=== PATIENT | male | born 1965 | race American Indian/Alaskan Native ===

== ENCOUNTER 2016-09-01 21:34 | Emergency (ER) | payer BC, OTHER ==
[2016-09-01] MEDS ORDERED: Sodium Chloride 0.9% 1,000 ML IV ONE (21:57)
[2016-09-01] MEDS ORDERED: Ondansetron 4 MG/2 ML SDV IV ONE (21:57)
[2016-09-01] MEDS ORDERED: diphenhydrAMINE 50 MG/ML SDV IVPUSH ONE (22:08)
[2016-09-01] MEDS ORDERED: Ketorolac 30 MG/ML SDV IVPUSH ONE (22:08)
[2016-09-01 22:13] LABS: CHLORIDE,CL 102 mmol/L (101-111); SODIUM,NA 137 mmol/L (135-145)
--- NOTE | 2016-09-01 22:28 | EDM.PDOC ---
ED HPI HEADACHE COMPLAINT - General Chief Complaint: Headache Stated Complaint: BP HIGH Time Seen by Provider: 09/01/16 21:45 Source of Information: Reports: Patient History Limitations: Reports: No limitations - History of Present Illness INITIAL COMMENTS - FREE TEXT/NARRATIVE: Ed with c/o of severe headache at top of head ad to temporal area, "feels like someone screwing something into head". Hx of migraines last 2 years ago, never as bad as this one, H/A started while at work. Light sensitive and nasueated, no vomiting. Checked BP and elevated 190's at home, notes last clinic visits starting to increase. Timing/Duration: Reports: hour(s): Location: Reports: parietal, bilateral - Related Data Allergies/ADRs: Allergies Allergy/AdvReac Type Severity Reaction Status Date / Time acetaminophen [From Percocet] Allergy Severe Vomiting Verified 09/01/16 21:40 oxycodone [From Percocet] Allergy Severe Vomiting Verified 09/01/16 21:40 Home Meds: Home Meds Lisinopril 40 mg PO DAILY 09/01/16 [History] Metoprolol Succinate 25 mg PO DAILY 09/01/16 [History] amLODIPine [Norvasc] 10 mg PO BEDTIME 09/01/16 [History] Past Medical History Cardiovascular History: Reports: High cholesterol, Hypertension Gastrointestinal History: Reports: GERD Genitourinary History: Reports: Renal calculus Musculoskeletal History: Reports: RA Neurological History: Reports: Migraines Endocrine/Metabolic History: Reports: Diabetes, type II, IDDM - Infectious Disease History Infectious Disease History: Reports: Chicken pox - Past Surgical History GI Surgical History: Reports: Appendectomy Social & Family History - Family History Cardiac: Reports: Angina, CAD, Heart failure, High cholesterol, Hypertension, [place] , Prior cardiac arrest - Tobacco Use Smoking Status *Q: Never Smoker Years of Tobacco use: 35 Used Tobacco, but Quit: Yes Month Tobacco Last Used: feb 2014 Second Hand Smoke Exposure: No - Caffeine Use Caffeine Use: Reports: None - Recreational Drug Use Recreational Drug Use: No - Living Situation & Occupation Occupation: employed ED ROS GENERAL - Review of Systems Review Of Systems: See Below Constitutional: Reports: no symptoms HEENT: Reports: No symptoms Respiratory: Reports: No Symptoms Cardiovascular: Reports: Blood pressure problem GI/Abdominal: Reports: Nausea : Reports: no symptoms Musculoskeletal: Reports: no symptoms Neurological: Reports: Headache. Denies: Numbness, Paresthesia, Pre-Existing Deficit, Tingling, Trouble Speaking, Difficulty Walking, Weakness Psychiatric: Reports: No symptoms - Physical Exam Exam: See Below Exam Limited By: No limitations General Appearance: alert, moderate distress Eye Exam: bilateral eye: EOMI, normal fundi, normal inspection, PERRL Ears: normal external exam Nose: normal inspection Throat/Mouth: Normal inspection Head Exam: atraumatic, normocephalic Neck: normal inspection Respiratory/Chest: no respiratory distress, lungs clear, normal breath sounds Cardiovascular: normal peripheral pulses, regular rate, rhythm, no edema GI/Abdominal: normal bowel sounds Neuro Exam (Abbreviated): alert, oriented, CN II-XII intact, normal cognition, normal gait, normal reflexes, no motor/sensory deficits Extremities: normal inspection Psychiatric: normal affect, anxious Skin Exam: Warm, Dry, Intact Course - Vital Signs Last Recorded V/S: Last Vital Signs Temp 96.5 F 09/01/16 21:36 Pulse 91 09/01/16 21:36 Resp 18 09/01/16 23:36 BP 151/85 H 09/01/16 23:36 Pulse Ox 93 L 09/01/16 23:36 - Orders/Labs/Meds Orders: Active Orders 24 hr Category Date Time Status EKG Documentation Completion [RC] URGENT Care 09/01/16 21:39 Active UA W/MICROSCOPIC [URIN] Stat Lab 09/01/16 21:41 Uncollected Labs: Laboratory Tests 09/01/16 09/01/16 09/01/16 Range/Units 21:46 21:46 21:46 WBC 8.5 (5.0-10.0) 10^3/uL RBC 4.84 (4.6-6.2) 10^6/uL Hgb 13.7 L (14.0-18.0) g/dL Hct 39.4 L (40.0-54.0) % MCV 81.4 (80-100) fL MCH 28.3 (27.0-34.0) pg MCHC 34.8 (33.0-35.0) g/dL Plt Count 267 (150-450) 10^3/uL Neut % (Auto) 69.7 (42.2-75.2) % Lymph % (Auto) 21.0 (20.5-50.1) % Bucks % (Auto) 6.0 (2-8) % Eos % (Auto) 2.8 (1.0-3.0) % Baso % (Auto) 0.5 (0.0-1.0) % PT 9.4 (9.0-12.0) SEC INR 0.9 (0.9-1.2) Sodium 137 (135-145) mmol/L Potassium 3.6 (3.6-5.0) mmol/L Chloride 102 (101-111) mmol/L Carbon Dioxide 28.0 (21.0-31.0) mmol/L Anion Gap 10.6 BUN 13 (7-18) mg/dL Creatinine 1.1 (0.6-1.3) mg/dL Est Cr Clr Drug Dosing 88.78 mL/min Estimated GFR (MDRD) > 60 BUN/Creatinine Ratio 11.81 Glucose 232 H (74-105) mg/dL Calcium 8.9 (8.4-10.2) mg/dl Total Bilirubin 0.6 (0.2-1.0) mg/dL AST 35 (10-42) IU/L ALT 35 (10-60) IU/L Alkaline Phosphatase 64 (42-121) IU/L Troponin I < 0.02 (0.00-0.02) ng/ml Total Protein 6.4 L (6.7-8.2) g/dl Albumin 3.5 (3.2-5.5) g/dl Globulin 2.9 Albumin/Globulin Ratio 1.21 Meds: Medications Discontinued Medications Generic Name Dose Route Start Last Admin Trade Name Enioq PRN Reason Stop Dose Admin Butorphanol Tartrate 1 mg 09/01/16 22:49 09/01/16 22:56 Stadol IVPUSH 09/01/16 22:50 1 mg ONETIME ONE Administration Diphenhydramine HCl 25 mg 09/01/16 22:08 09/01/16 22:21 Benadryl IVPUSH 09/01/16 22:09 25 mg ONETIME ONE Administration Sodium Chloride 1,000 mls @ 999 mls/hr 09/01/16 21:57 09/01/16 22:16 Normal Saline IV 09/01/16 22:57 999 mls/hr .BOLUS ONE Administration Ketorolac Tromethamine 30 mg 09/01/16 22:08 09/01/16 22:18 Toradol IVPUSH 09/01/16 22:09 30 mg ONETIME ONE Administration Ondansetron HCl 4 mg 09/01/16 21:57 09/01/16 22:16 Zofran IV 09/01/16 21:58 4 mg ONETIME ONE Administration - Radiology Interpretation Free Text/Narrative:: Head CT negative - Re-Assessments/Exams Free Text/Narrative Re-Assessment/Exam: 09/01/16 22:42 H/A improving, rates 11/24 vs earlier "04/26", BP improved 150 systolic Departure - Departure Time of Disposition: 23:32 Disposition: Home, Self-Care 01 Condition: good Clinical Impression: Headache Qualifiers: Headache type: unspecified Headache chronicity pattern: acute headache Intractability: not intractable Qualified Code(s): R51 - Headache Instructions: Migraine Headache Forms: ED Department Discharge Additional Instructions: rest increase fluids follow up in clinic 2-3 days, sooner if not improving - My Orders Last 24 Hours: My Active Orders 09/01/16 21:39 EKG Documentation Completion [RC] URGENT 09/01/16 21:41 UA W/MICROSCOPIC [URIN] Stat - Assessment/Plan Last 24 Hours: My Active Orders 09/01/16 21:39 EKG Documentation Completion [RC] URGENT 09/01/16 21:41 UA W/MICROSCOPIC [URIN] Stat
[2016-09-01] MEDS ORDERED: Butorphanol 2 MG/ML SDV IVPUSH ONE (22:49)
[2016-09-01 23:37] VITALS: BP 151/85
--- NOTE | 2016-09-02 16:04 | EKG ---
09/01/2016 - KELLY OSEGUERA E - TIME: 2147 hours. EKG per my reading shows sinus rhythm at the rate of 80 with QTc interval of 499. [facility] /[id number]
== END 2016-09-01 23:46 | disposition home or self-care (01) ==
LOC: DL.ED 21:34
DX: R51 Headache (principal); E78.00 Pure hypercholesterolemia, unspecified; I10 Essential (primary) hypertension; K21.9 Gastro-esophageal reflux disease without esophagitis; G43.909 Migraine, unspecified, not intractable, without status migrainosus; E11.9 Type 2 diabetes mellitus without complications; M06.9 Rheumatoid arthritis, unspecified; Z90.49 Acquired absence of other specified parts of digestive tract; Z88.6 Allergy status to analgesic agent; Z88.5 Allergy status to narcotic agent; Z79.899 Other long term (current) drug therapy
CPT/HCPCS: 36415; 70450; 80053; 84484; 85025; 85610; 93005; 96361; 96374; 96375; 99284; J0595; J1200; J1885; J2405; J7030

== ENCOUNTER 2016-09-20 12:06 | Emergency (ER) | payer BC, OTHER ==
[2016-09-20 12:21] VITALS: BP 156/77
[2016-09-20] MEDS ORDERED: Lidocaine 2% Viscous Solution 15 ML Cup PO ONE (12:26)
--- NOTE | 2016-09-20 12:54 | EDM.PDOC ---
Scribed by Keri Jorgensen 09/20/16 1236 for Arya Coker MD ED HPI ENT - General Chief Complaint: ENT Problem Stated Complaint: TOOTHACHE Time Seen by Provider: 09/20/16 12:18 Source of Information: Reports: Patient, RN, RN notes reviewed History Limitations: Reports: No limitations - History of Present Illness INITIAL COMMENTS - FREE TEXT/NARRATIVE: Seen at dentist yesterday. The dentist drilled to the root of the left rear mandibular molar and placed a temporary packing here for the patient for root canal. Placed the patient on Amoxicillin and told the patient that a prescription for pain medication would be waiting at the clinic pharmacy, however, the prescription was not there. By the time he got to the pharmacy the dentist was was gone and unable to be contacted. Patient thought that he could get by with Tylenol or Ibuprofen, but the pain was intolerable. Today he had increased swelling and increased warmth to the left face. Severity: severe Location: Reports: mouth Quality: Reports: Ache Improves with: Reports: None Worsens with: Reports: None Associated Symptoms: Reports: no other symptoms - Related Data Allergies/ADRs: Allergies Allergy/AdvReac Type Severity Reaction Status Date / Time acetaminophen [From Percocet] Allergy Severe Vomiting Verified 09/20/16 12:21 oxycodone [From Percocet] Allergy Severe Vomiting Verified 09/20/16 12:21 Home Meds: Home Meds Lisinopril 40 mg PO DAILY 09/01/16 [History] Metoprolol Succinate 25 mg PO DAILY 09/01/16 [History] amLODIPine [Norvasc] 10 mg PO BEDTIME 09/01/16 [History] Chlorthalidone 1 tab PO DAILY 09/20/16 [History] Insulin Aspart [Novolog Flexpen] 09/20/16 [History] Insulin Detemir [Levemir] 09/20/16 [History] Omeprazole 20 mg PO DAILY 09/20/16 [History] Past Medical History Cardiovascular History: Reports: High cholesterol, Hypertension Gastrointestinal History: Reports: GERD Genitourinary History: Reports: Renal calculus Musculoskeletal History: Reports: RA Neurological History: Reports: Migraines Endocrine/Metabolic History: Reports: Diabetes, type II, IDDM - Infectious Disease History Infectious Disease History: Reports: Chicken pox - Past Surgical History GI Surgical History: Reports: Appendectomy Social & Family History - Family History Cardiac: Reports: Angina, CAD, Heart failure, High cholesterol, Hypertension, [place] , Prior cardiac arrest - Tobacco Use Smoking Status *Q: Never Smoker Years of Tobacco use: 35 Used Tobacco, but Quit: Yes Month Tobacco Last Used: feb 2014 Second Hand Smoke Exposure: No - Caffeine Use Caffeine Use: Reports: None - Recreational Drug Use Recreational Drug Use: No - Living Situation & Occupation Occupation: employed ED ROS ENT - Review of Systems Review Of Systems: ROS reveals no pertinent complaints other than HPI. ED EXAM, ENT - Physical Exam Exam: See Below Exam Limited By: No limitations General Appearance: alert, WD/WN, no apparent distress Eye Exam: bilateral eye: normal inspection Ears: normal external exam, normal canal, hearing grossly normal, normal TMs Nose: normal inspection, normal mucousa, no blood Mouth/Throat: Other (temproary pack in left mandibular molar with gum swelling. Left face swelling, tenderness and increased warmath. ) Head: atraumatic, normocephalic Neck: normal inspection, supple, non-tender, full range of motion Respiratory/Chest: no respiratory distress Neurological: alert, oriented, CN II-XII intact, normal cognition, normal gait, normal reflexes, no motor/sensory deficits Psychiatric: normal affect, normal mood Skin: Warm, Dry, Intact, Normal color, No rash Lymphatic: no adenopathy Course - Vital Signs Last Recorded V/S: Last Vital Signs Temp 36.3 C 09/20/16 12:17 Pulse 71 09/20/16 12:17 Resp 18 09/20/16 12:17 BP 156/77 H 09/20/16 12:17 Pulse Ox 99 09/20/16 12:17 - Orders/Labs/Meds Meds: Medications Discontinued Medications Generic Name Dose Route Start Last Admin Trade Name Freq PRN Reason Stop Dose Admin Lidocaine HCl 15 ml 09/20/16 12:26 09/20/16 12:40 Xylocaine 2% Viscous PO 09/20/16 12:27 15 ml ONETIME ONE Administration Departure - Departure Time of Disposition: 12:28 Disposition: Home, Self-Care 01 Condition: good Clinical Impression: Dental abscess Instructions: Dental Abscess, [id number] Forms: ED Department Discharge Additional Instructions: Avon 5mg/325mg. Clindamycin 300mg. Vicus Lidocaine 2%. Follow up with dentist as planned. I have read and agree with the documentation that has been completed regarding this visit. By signing this record, I attest that the documentation was completed in my physical presence and is an accurate record of the encounter.
== END 2016-09-20 12:42 | disposition home or self-care (01) ==
LOC: DL.ED 12:06
DX: K04.7 Periapical abscess without sinus (principal); E78.00 Pure hypercholesterolemia, unspecified; I10 Essential (primary) hypertension; K21.9 Gastro-esophageal reflux disease without esophagitis; M06.9 Rheumatoid arthritis, unspecified; E11.9 Type 2 diabetes mellitus without complications; Z79.4 Long term (current) use of insulin; Z79.899 Other long term (current) drug therapy; Z90.49 Acquired absence of other specified parts of digestive tract; Z88.6 Allergy status to analgesic agent
CPT/HCPCS: 99282; A9270

== ENCOUNTER 2018-09-14 07:03 | Day surgery (SDC) | payer BC, OTHER ==
[~2018-09-14 07:03] MED LIST: Midazolam 1 MG/ML 2 ML SDV ONE; Sodium Chloride 0.9% 10 ML Syringe FLUSH PRN; fentaNYL 100 MCG/2 ML SDV ONE
[2018-09-14] MEDS ORDERED: Midazolam 1 MG/ML 2 ML SDV IV ONE ×3 (07:04→07:37)
[2018-09-14] MEDS ORDERED: fentaNYL 100 MCG/2 ML SDV IV ONE ×3 (07:04→07:36)
[2018-09-14] MEDS ORDERED: Dextrose 5%-0.45% NaCl 1,000 ML IV SCH (08:00)
[2018-09-14 09:52] VITALS: BP 109/74
--- NOTE | 2018-09-14 13:46 | OR ---
DATE: 09/14/2018 PROCEDURE PERFORMED: Esophagogastroduodenoscopy and multiple pinch biopsies. INSTRUMENT USED: [id number]-[id number] Olympus video panendoscope. PREMEDICATIONS: No oral or topical anesthesia used. Fentanyl 100 mcg intravenous, Versed 2 mg intravenous. The procedure was done under pulse oximetry, BP recording, and equipment monitor phototypesetting. INDICATION: The patient with longstanding heartburn, on PPI with continuing heartburn, unexplained and not responsive to medical measures. Esophagogastroduodenoscopy is performed for detection of any active erosive lesions, West esophagus and/or malignancy also under consideration, H. pylori status to be determined, endoscopic hemostasis therapy if needed. DESCRIPTION OF PROCEDURE: The scope was passed with ease. Adequate visualization of the esophagus was made from proximal to distal areas. No upper esophageal lesions identified. No distal esophageal stricture. No uphill or downhill esophageal varices. No Nemo-Larson tear. No evidence of erosive esophagitis by Kimble criteria. No esophageal polyp or tumor mass identified. Z-line was seen at around 40 cm distal to the oral verge, configuration consistent with grade 1 by ZAP classification. No proximal gastric varices noted. Gastric fundus examination by retroflexion showed no malignant lesions. No gastric ulcer, malignant mass, or vascular ectasia identified. Duodenal bulb showed no ulcer. Visualized second part of the duodenum was unremarkable. Multiple pinch biopsies were taken from the gastric antrum and proximal body and sent for PyloriTek test for H. pylori, and if negative in an hour, the tissue is to be sent for histopathology. No bleeding was noted from any of the visualized areas at the completion of examination. Photographs were taken of the duodenal bulb, gastric antrum, fundus, and distal esophagus. IMPRESSION: Normal study. The patient tolerated the procedure well. [facility] /[id number]
--- NOTE | 2018-09-14 15:07 | LETTER ---
09/14/2018 Keyon Stover MD [facility] [address] [place] [address] RE: MITCH OSEGUERA : [address] Stover: Mr. Mitch Aguirre Tiana Sr. had esophagogastroduodenoscopy done this morning and he tolerated the procedure well. I herewith send a copy of the endoscopy note and photographs for your review. Thank you. Sincerely, [facility] /[id number]
== END 2018-09-14 09:24 | disposition home or self-care (01) ==
LOC: DL.ENDO 07:03
PROVIDERS: ATTEND Internal Medicine Gastroenterology
DX: R12 Heartburn (principal); E78.00 Pure hypercholesterolemia, unspecified; I12.9 Hypertensive chronic kidney disease with stage 1 through stage 4 chronic kidney disease, or unspecified chronic kidney disease; E11.22 Type 2 diabetes mellitus with diabetic chronic kidney disease; N18.9 Chronic kidney disease, unspecified; Z88.8 Allergy status to other drugs, medicaments and biological substances; Z87.891 Personal history of nicotine dependence; Z80.0 Family history of malignant neoplasm of digestive organs; Z79.82 Long term (current) use of aspirin; Z79.899 Other long term (current) drug therapy
CPT/HCPCS: 43239; 87077; J2250; J3010; J7042

== ENCOUNTER 2018-09-21 05:59 | Day surgery (SDC) | payer BC, OTHER ==
[2018-09-21] MEDS ORDERED: Midazolam 1 MG/ML 2 ML SDV IV ONE ×7 (06:00→07:14)
[2018-09-21] MEDS ORDERED: Dextrose 5%-0.45% NaCl 1,000 ML IV SCH (06:00)
[2018-09-21] MEDS ORDERED: fentaNYL 100 MCG/2 ML SDV IV ONE ×4 (06:00→07:16)
[2018-09-21] MEDS ORDERED: Sodium Chloride 0.9% 10 ML Syringe FLUSH PRN (06:00)
[2018-09-21] MEDS ORDERED: Midazolam 1 MG/ML 2 ML SDV ONE (06:15)
[2018-09-21] MEDS ORDERED: fentaNYL 100 MCG/2 ML SDV ONE (06:15)
[2018-09-21 09:34] VITALS: BP 109/59
--- NOTE | 2018-09-21 13:11 | OR ---
DATE: 09/21/2018 PROCEDURE PERFORMED: Total colonoscopy. INSTRUMENT USED: [id number] Olympus video colonoscope. PREMEDICATIONS: Fentanyl 125 mcg intravenous, Versed 4 mg intravenous. The procedure was done under pulse oximetry, BP recording, and monitoring and evaluation advisor. INDICATION: Screening colonoscopic examination is done for detection of any polypoid lesions and removal, endoscopic hemostasis therapy if needed. DESCRIPTION OF PROCEDURE: Initial rectal exam showed BPH. Rigid anoscopy was normal. The colonoscope was passed with ease. Numerous scattered diverticula were noted in the distal left colon along with deformity. The scope was passed with ease up to the ileocecal area. Photographs were taken of the normal- appearing cecum, identified by the double-bulged ileocecal folds. No bleeding was noted from any of the visualized areas at the commencement of the examination. The bowel preparation was found to be adequate, Arvilla scale 3. No stricture. No vascular ectasia. No large isolated ulcerations seen. No evidence of diffuse inflammatory bowel disease in the form of friability, contact bleeding, or ulcerations. No polyp or tumor mass identified. Probing the proximal sides of folds and flexures using adequate distention and clearing up the stool material, withdrawal of the scope was made, cecum to rectum, time over 6 minutes. No bleeding was noted from any of the visualized areas at the completion of the examination. IMPRESSION: Diverticulosis. The patient tolerated the procedure well. [facility] /[id number]
--- NOTE | 2018-09-21 13:41 | LETTER ---
09/21/2018 Keyon Stover MD [facility] [address] [place] [address] RE: MITCH OSEGUERA ESTEVAN : [address] Stover: Mr. Mitch Oseguera had colonoscopic examination done this morning and he tolerated the procedure well. I herewith send a copy of the endoscopy note and photographs for your review. Thank you. Sincerely, [facility] /[id number]
== END 2018-09-21 09:27 | disposition home or self-care (01) ==
LOC: DL.ENDO 05:59
PROVIDERS: ATTEND Internal Medicine Gastroenterology
DX: Z12.11 Encounter for screening for malignant neoplasm of colon (principal); K21.9 Gastro-esophageal reflux disease without esophagitis; I12.9 Hypertensive chronic kidney disease with stage 1 through stage 4 chronic kidney disease, or unspecified chronic kidney disease; E11.22 Type 2 diabetes mellitus with diabetic chronic kidney disease; N18.9 Chronic kidney disease, unspecified; E78.5 Hyperlipidemia, unspecified; R63.4 Abnormal weight loss; Z87.891 Personal history of nicotine dependence; Z80.0 Family history of malignant neoplasm of digestive organs; Z79.82 Long term (current) use of aspirin; Z79.899 Other long term (current) drug therapy; Z88.5 Allergy status to narcotic agent; Z88.8 Allergy status to other drugs, medicaments and biological substances
CPT/HCPCS: 45378; J2250; J3010; J7042

== ENCOUNTER 2021-01-02 13:42 | Emergency (ER) | payer OTHER ==
[2021-01-02 15:24] VITALS: BP 141/95; PULSE 87
[2021-01-02 16:00] LABS: ANION GAP 16.1 mEq/L (7-13)
[2021-01-02] MEDS ORDERED: Pantoprazole 40 MG Vial IVPUSH ONE (16:34)
[2021-01-02] MEDS ORDERED: Ondansetron 4 MG/2 ML SDV IVPUSH ONE (16:34)
--- NOTE | 2021-01-02 16:42 | EDM.PDOC ---
ED HPI GENERAL MEDICAL PROBLEM - General Chief Complaint: Abdominal Pain Stated Complaint: [id number] BAD STOMACH PAIN Time Seen by Provider: 01/02/21 16:25 Source of Information: Reports: Patient History Limitations: Reports: No Limitations - History of Present Illness INITIAL COMMENTS - FREE TEXT/NARRATIVE: This 55 yo male patient reports to the ED due to a 4 week history of abdominal pain over the epigastric area. The patient reports he has been having intermittent abdominal pain with nausea and vomiting. The patient reports he has attempted to take Tums, Mylanta and Pepto with no symptom improvement. The patient reports he had a history of acid reflux, but was take off omeprazole "years ago". The patient reports he seems to have increased symptoms after he eats. The patient has not been seen by his primary care facility for these symptoms. The patient reports his symptoms have been much worse today. Onset: Today Duration: Constant Location: Reports: Abdomen Quality: Reports: Ache, Sharp, Stabbing Severity: Moderate Improves with: Reports: None Worsens with: Reports: None Context: Reports: Other Associated Symptoms: Reports: No Other Symptoms abdomen Pain Score (Numeric/FACES): 10 - Related Data Allergies Allergy/AdvReac Type Severity Reaction Status Date / Time tamsulosin [From Flomax] Allergy Swelling Verified 01/02/21 15:25 acetaminophen [From Percocet] AdvReac Severe Vomiting Verified 01/02/21 15:25 oxycodone [From Percocet] AdvReac Severe Vomiting Verified 01/02/21 15:25 Home Meds: Home Meds Lisinopril 40 mg PO BEDTIME 09/01/16 [History] Metoprolol Succinate 25 mg PO BEDTIME 09/01/16 [History] amLODIPine [Norvasc] 10 mg PO BEDTIME 09/01/16 [History] Chlorthalidone 25 mg PO DAILY 09/20/16 [History] Insulin Aspart [Novolog Flexpen] 4 - 22 units SQ WITHMEALSANDBED 09/20/16 [History] Insulin Detemir [Levemir] 20 units SQ BID 09/20/16 [History] Omeprazole 20 mg PO DAILY 09/20/16 [History] Meclizine HCl 25 mg PO BID PRN #20 tab.chew 06/05/17 [Rx] Past Medical History HEENT History: Reports: Impaired Vision, Macular Degeneration Cardiovascular History: Reports: High Cholesterol, Hypertension, [place] Respiratory History: Reports: None Gastrointestinal History: Reports: GERD, Hemorrhoids Genitourinary History: Reports: BPH, Renal Calculus, Renal Disease Other Genitourinary History: HEMATURIA Musculoskeletal History: Reports: RA Other Musculoskeletal History: DIABETIC PERIPHERAL NEUROPATHY Neurological History: Reports: Concussion, Headaches, Chronic, Migraines Psychiatric History: Reports: None Endocrine/Metabolic History: Reports: Diabetes, Type II, IDDM, Obesity/BMI 30+ Hematologic History: Reports: Anemia Immunologic History: Reports: None Oncologic (Cancer) History: Reports: None Dermatologic History: Reports: None - Infectious Disease History Infectious Disease History: Reports: Chicken Pox Other Infectious Disease History: MOTHER EXPERIENCED MUMPS AND MEALSES DURING HIS - Past Surgical History Head Surgeries/Procedures: Reports: None HEENT Surgical History: Reports: Tonsillectomy Cardiovascular Surgical History: Reports: None Respiratory Surgical History: Reports: None GI Surgical History: Reports: Appendectomy Endocrine Surgical History: Reports: None Neurological Surgical History: Reports: None Musculoskeletal Surgical History: Reports: None Oncologic Surgical History: Reports: None Dermatological Surgical History: Reports: None Social & Family History - Family History Family Medical History: No Pertinent Family History Cardiac: Reports: Angina, CAD, Heart Failure, High Cholesterol, Hypertension, [place], Prior Cardiac Arrest - Tobacco Use Tobacco Use Status *Q: Never Tobacco User - Caffeine Use Caffeine Use: Reports: None Other Caffeine Use: 'I LOVE COFFEE' 2-3 CUPS 16 OZ CUPS DAILY - Recreational Drug Use Recreational Drug Use: No - Living Situation & Occupation Occupation: Employed ED ROS GENERAL - Review of Systems Review Of Systems: Comprehensive ROS is negative, except as noted in HPI. ED EXAM, GI/ABD - Physical Exam Exam: See Below Exam Limited By: No Limitations General Appearance: Alert, WD/WN, Moderate Distress Eyes: Bilateral: Normal Appearance, EOMI Ears: Normal External Exam, Normal Canal, Hearing Grossly Normal, Normal TMs Nose: Normal Inspection, Normal Mucosa, No Blood Throat/Mouth: Normal Inspection, Normal Lips, Normal Teeth, Normal Gums, Normal Oropharynx, Normal Voice, No Airway Compromise Head: Atraumatic, Normocephalic Respiratory/Chest: No Respiratory Distress, Lungs Clear, Normal Breath Sounds, No Accessory Muscle Use, Chest Non-Tender Cardiovascular: Normal Peripheral Pulses, Regular Rate, Rhythm, No Edema, No Gallop, No JVD, No Murmur, No Rub GI/Abdominal Exam: Tender (over the epigastic area) (Male) Exam: Deferred Rectal (Males) Exam: Deferred Back Exam: Normal Inspection, Full Range of Motion, NT Extremities: Normal Inspection, Normal Range of Motion, Non-Tender, Normal Capillary Refill, No Pedal Edema Neurological: Alert, Oriented, CN II-XII Intact, Normal Cognition, Normal Gait, Normal Reflexes, No Motor/Sensory Deficits Psychiatric: Normal Affect, Normal Mood Skin Exam: Warm, Dry, Intact, Normal Color, No Rash Lymphatic: No Adenopathy Course - Vital Signs Last Recorded V/S: Last Vital Signs Temp 98.3 F 01/02/21 13:55 Pulse 87 01/02/21 13:55 Resp 20 01/02/21 13:55 BP 141/95 H 01/02/21 13:55 Pulse Ox 100 01/02/21 13:55 - Orders/Labs/Meds Orders: Active Orders 24 hr Category Date Time Status CULTURE BLOOD [BC] Stat Lab 01/02/21 15:14 Received CULTURE BLOOD [BC] Stat Lab 01/02/21 15:21 Received Blood Culture x2 Reflex Set [OM.PC] Stat Oth 01/02/21 15:00 Ordered Labs: Laboratory Tests 01/02/21 01/02/21 01/02/21 Range/Units 15:21 15:21 15:21 WBC 5.4 (5.0-10.0) 10^3/uL RBC 4.43 L (4.6-6.2) 10^6/uL Hgb 12.7 L (14.0-18.0) g/dL Hct 36.5 L (40.0-54.0) % MCV 82.4 (80-100) fL MCH 28.7 (27.0-34.0) pg MCHC 34.8 (33.0-35.0) g/dL Plt Count 312 (150-450) 10^3/uL Neut % (Auto) 75.9 H (42.2-75.2) % Lymph % (Auto) 8.5 L (20.5-50.1) % [place] % (Auto) 14.0 H (2-8) % Eos % (Auto) 0.9 L (1.0-3.0) % Baso % (Auto) 0.7 (0.0-1.0) % Sodium 135 L (136-145) mmol/L Potassium 4.1 (3.5-5.1) mmol/L Chloride 97 L (98-107) mmol/L Carbon Dioxide 26 (21-32) mmol/L Anion Gap 16.1 H (7-13) mEq/L BUN 21 H (7-18) mg/dL Creatinine 1.61 H (0.70-1.30) mg/dL Est Cr Clr Drug Dosing 57.90 mL/min Estimated GFR (MDRD) 45 BUN/Creatinine Ratio 13.0 (No establ ref range) Glucose 196 H (70-99) mg/dL Lactic Acid 3.0 H* (0.4-2.0) mmol/L Calcium 10.0 (8.5-10.1) mg/dL Total Bilirubin 0.7 (0.2-1.0) mg/dL AST 23 (15-37) U/L ALT 34 (16-63) U/L Alkaline Phosphatase 70 (46-116) U/L Total Protein 7.2 (6.4-8.2) g/dL Albumin 3.9 (3.4-5.0) g/dL Globulin 3.3 Albumin/Globulin Ratio 1.2 Amylase 49 (25-115) U/L Lipase 147 (73-393) U/L Urine Color (YELLOW) Urine Appearance (CLEAR) Urine pH (5.0-9.0) Ur Specific [place] (1.005-1.030) Urine Protein (NEGATIVE) Urine Glucose (UA) (NEGATIVE) Urine Ketones (NEGATIVE) Urine Occult Blood (NEGATIVE) Urine Nitrite (NEGATIVE) Urine Bilirubin (NEGATIVE) Urine Urobilinogen (0.2-1.0) mg/dL Ur Leukocyte Esterase (NEGATIVE) 01/02/21 Range/Units 16:32 WBC (5.0-10.0) 10^3/uL RBC (4.6-6.2) 10^6/uL Hgb (14.0-18.0) g/dL Hct (40.0-54.0) % MCV (80-100) fL MCH (27.0-34.0) pg MCHC (33.0-35.0) g/dL Plt Count (150-450) 10^3/uL Neut % (Auto) (42.2-75.2) % Lymph % (Auto) (20.5-50.1) % [place] % (Auto) (2-8) % Eos % (Auto) (1.0-3.0) % Baso % (Auto) (0.0-1.0) % Sodium (136-145) mmol/L Potassium (3.5-5.1) mmol/L Chloride (98-107) mmol/L Carbon Dioxide (21-32) mmol/L Anion Gap (7-13) mEq/L BUN (7-18) mg/dL Creatinine (0.70-1.30) mg/dL Est Cr Clr Drug Dosing mL/min Estimated GFR (MDRD) BUN/Creatinine Ratio (No establ ref range) Glucose (70-99) mg/dL Lactic Acid (0.4-2.0) mmol/L Calcium (8.5-10.1) mg/dL Total Bilirubin (0.2-1.0) mg/dL AST (15-37) U/L ALT (16-63) U/L Alkaline Phosphatase (46-116) U/L Total Protein (6.4-8.2) g/dL Albumin (3.4-5.0) g/dL Globulin Albumin/Globulin Ratio Amylase (25-115) U/L Lipase (73-393) U/L Urine Color Yellow (YELLOW) Urine Appearance Clear (CLEAR) Urine pH 8.0 (5.0-9.0) Ur Specific [place] 1.020 (1.005-1.030) Urine Protein Negative (NEGATIVE) Urine Glucose (UA) 100 H (NEGATIVE) Urine Ketones Trace H (NEGATIVE) Urine Occult Blood Negative (NEGATIVE) Urine Nitrite Negative (NEGATIVE) Urine Bilirubin Negative (NEGATIVE) Urine Urobilinogen 0.2 (0.2-1.0) mg/dL Ur Leukocyte Esterase Negative (NEGATIVE) Meds: Medications Discontinued Medications Generic Name Dose Route Start Last Admin Trade Name Freq PRN Reason Stop Dose Admin Al Hydroxide/Mg Hydroxide 30 ml 01/02/21 17:16 01/02/21 17:23 Gi Cocktail Oral Solution 30 Ml PO 01/02/21 17:17 30 ml ONETIME ONE Administration Ondansetron HCl 4 mg 01/02/21 16:34 01/02/21 16:41 Ondansetron 4 Mg/2 Ml Sdv IVPUSH 01/02/21 16:35 4 mg ONETIME ONE Administration Pantoprazole Sodium 40 mg 01/02/21 16:34 01/02/21 16:42 Pantoprazole 40 Mg Vial IVPUSH 01/02/21 16:35 40 mg ONETIME ONE Administration Departure - Departure Time of Disposition: 17:39 Disposition: Home, Self-Care 01 Condition: Fair Clinical Impression: GERD (gastroesophageal reflux disease) Qualifiers: Esophagitis presence: with esophagitis Esophagitis bleeding: unspecified whether hemorrhage Qualified Code(s): K21.00 - Gastro-esophageal reflux disease with esophagitis, without bleeding - Discharge Information *PRESCRIPTION DRUG MONITORING PROGRAM REVIEWED*: Not Applicable *COPY OF PRESCRIPTION DRUG MONITORING REPORT IN PATIENT ANNIE: Not Applicable Instructions: Gastroesophageal Reflux Disease, Adult, [id number] Forms: ED Department Discharge Care Plan Goals: The patient was advised of the examination and lab results during the visit. The patient was given an IV dose of Protonix, an IV dose of Zofran and an oral GI Cocktail during the visit. The patient was discharged with a script for Omeprazole (20 mg) #30 to take 1 by mouth 30 minutes prior to eating daily and Zofran (4 mg) #20 to take 1 by mouth every 6 hours as needed for nausea. The patient was encouraged to follow-up with his primary care facility. If the patient has any additional symptoms or concerns, the patient should either return to the emergency department or visit his primary care facility. Sepsis Event Note (ED) - Focused Exam Vital Signs: Vital Signs Temp Pulse Resp BP Pulse Ox 01/02/21 13:55 98.3 F 87 20 141/95 H 100 - My Orders Last 24 Hours: My Active Orders 01/02/21 15:00 Blood Culture x2 Reflex Set [OM.PC] Stat 01/02/21 15:14 CULTURE BLOOD [BC] Stat 01/02/21 15:21 CULTURE BLOOD [BC] Stat - Assessment/Plan Last 24 Hours: My Active Orders 01/02/21 15:00 Blood Culture x2 Reflex Set [OM.PC] Stat 01/02/21 15:14 CULTURE BLOOD [BC] Stat 01/02/21 15:21 CULTURE BLOOD [BC] Stat
[2021-01-02] MEDS ORDERED: GI Cocktail Oral Solution 30 ML PO ONE (17:16)
== END 2021-01-02 17:51 | disposition home or self-care (01) ==
LOC: DL.ED 13:42
DX: K21.00 Gastro-esophageal reflux disease with esophagitis, without bleeding (principal); I10 Essential (primary) hypertension; E78.00 Pure hypercholesterolemia, unspecified; I25.2 Old myocardial infarction; E11.9 Type 2 diabetes mellitus without complications; E66.9 Obesity, unspecified; Z68.24 Body mass index [BMI] 24.0-24.9, adult; Z79.899 Other long term (current) drug therapy; Z88.8 Allergy status to other drugs, medicaments and biological substances; Z88.5 Allergy status to narcotic agent; Z79.4 Long term (current) use of insulin
CPT/HCPCS: 36415; 80053; 81003; 82150; 83605; 83690; 85025; 87040; 96374; 96375; 99283; 99284; A9270; C9113; J2405

== ENCOUNTER 2021-01-10 07:42 | Emergency (ER) | payer OTHER ==
[2021-01-10 07:56] VITALS: BP 112/57; PULSE 75
--- NOTE | 2021-01-10 08:05 | EDM.PDOC ---
ED HPI GENERAL MEDICAL PROBLEM - General Chief Complaint: Abdominal Pain Stated Complaint: ULCERS [id number] Time Seen by Provider: 01/10/21 08:05 Source of Information: Reports: Patient, RN, RN Notes Reviewed History Limitations: Reports: No Limitations - History of Present Illness INITIAL COMMENTS - FREE TEXT/NARRATIVE: Mitch is a 55 y/o male who presents to the ED via personal vehicle for complaints of midepigastric pain, nausea, and vomiting. The patient states his pain started weeks ago and has waxed and waned in severity over that time; he notes the pain is the worst post-prandial. He characterizes the pain as sharp and notes it occasionally radiates down to the umbilicus or up his midsternum. He reports he has been taking omeprazole 20mg qAM and Zofran 4mg 30 minutes prior to eating. He denies taking PRN medications. He denies fever, chest pain, palpitations, hematemesis, coffee-ground emesis, diarrhea, melena, or hematochezia. He does attest to constipation and notes he has not had a bowel movement in five days. Treatments TRANSITIONAL CARE NURSE: Reports: Other (see below) Other Treatments TRANSITIONAL CARE NURSE: tums abdominal Pain Score (Numeric/FACES): 8 - Related Data Allergies Allergy/AdvReac Type Severity Reaction Status Date / Time tamsulosin [From Flomax] Allergy Swelling Verified 01/10/21 07:56 acetaminophen [From Percocet] AdvReac Severe Vomiting Verified 01/10/21 07:56 oxycodone [From Percocet] AdvReac Severe Vomiting Verified 01/10/21 07:56 Home Meds: Home Meds Lisinopril 40 mg PO BEDTIME 09/01/16 [History] Metoprolol Succinate 25 mg PO BEDTIME 09/01/16 [History] amLODIPine [Norvasc] 10 mg PO BEDTIME 09/01/16 [History] Chlorthalidone 25 mg PO DAILY 09/20/16 [History] Insulin Aspart [Novolog Flexpen] 4 - 22 units SQ WITHMEALSANDBED 09/20/16 [History] Insulin Detemir [Levemir] 20 units SQ BID 09/20/16 [History] Omeprazole 20 mg PO DAILY 09/20/16 [History] Meclizine HCl 25 mg PO BID PRN #20 tab.chew 06/05/17 [Rx] Past Medical History HEENT History: Reports: Impaired Vision, Macular Degeneration Cardiovascular History: Reports: High Cholesterol, Hypertension, [place] Respiratory History: Reports: None Gastrointestinal History: Reports: GERD, Hemorrhoids Genitourinary History: Reports: BPH, Renal Calculus, Renal Disease Other Genitourinary History: HEMATURIA Musculoskeletal History: Reports: RA Other Musculoskeletal History: DIABETIC PERIPHERAL NEUROPATHY Neurological History: Reports: Concussion, Headaches, Chronic, Migraines Psychiatric History: Reports: None Endocrine/Metabolic History: Reports: Diabetes, Type II, IDDM, Obesity/BMI 30+ Hematologic History: Reports: Anemia Immunologic History: Reports: None Oncologic (Cancer) History: Reports: None Dermatologic History: Reports: None - Infectious Disease History Infectious Disease History: Reports: Chicken Pox Other Infectious Disease History: MOTHER EXPERIENCED MUMPS AND MEALSES DURING HIS - Past Surgical History Head Surgeries/Procedures: Reports: None HEENT Surgical History: Reports: Tonsillectomy Cardiovascular Surgical History: Reports: None Respiratory Surgical History: Reports: None GI Surgical History: Reports: Appendectomy Endocrine Surgical History: Reports: None Neurological Surgical History: Reports: None Musculoskeletal Surgical History: Reports: None Oncologic Surgical History: Reports: None Dermatological Surgical History: Reports: None Social & Family History - Family History Family Medical History: No Pertinent Family History Cardiac: Reports: Angina, CAD, Heart Failure, High Cholesterol, Hypertension, [place], Prior Cardiac Arrest - Caffeine Use Caffeine Use: Reports: None Other Caffeine Use: 'I LOVE COFFEE' 2-3 CUPS 16 OZ CUPS DAILY - Living Situation & Occupation Occupation: Employed ED ROS GENERAL - Review of Systems Review Of Systems: Comprehensive ROS is negative, except as noted in HPI. ED EXAM, GI/ABD - Physical Exam Exam: See Below Exam Limited By: No Limitations General Appearance: Alert, Mild Distress (Upper abdominal pain). No: Active Emesis Eyes: Bilateral: Normal Appearance, EOMI Ears: Normal External Exam, Hearing Grossly Normal Nose: Normal Inspection, Normal Mucosa, No Blood Throat/Mouth: Normal Inspection, Normal Oropharynx, Normal Voice, No Airway Compromise Head: Atraumatic, Normocephalic Neck: Normal Inspection, Supple, Non-Tender, Full Range of Motion. No: Lymphadenopathy (L), Lymphadenopathy (R) Respiratory/Chest: No Respiratory Distress, Lungs Clear, Normal Breath Sounds, No Accessory Muscle Use, Chest Non-Tender Cardiovascular: Normal Peripheral Pulses, Regular Rate, Rhythm, No Edema, No Gallop, No JVD, No Murmur, No Rub GI/Abdominal Exam: Soft, No Distention, No Abnormal Bruit, No Mass, Pelvis Stable, Tender (To palpation of bilateral upper quadrants), Abnormal Bowel Sounds (Hyperactive bowel sounds) (Male) Exam: Deferred Rectal (Males) Exam: Deferred Back Exam: Normal Inspection, Full Range of Motion Extremities: Normal Inspection, Normal Range of Motion, Non-Tender, No Pedal Edema, Normal Capillary Refill Neurological: Alert, Oriented, CN II-XII Intact, Normal Cognition, Normal Gait, No Motor/Sensory Deficits Psychiatric: Normal Affect, Normal Mood Skin Exam: Warm, Intact, Normal Color, Diaphoretic, Erythema (To nose). No: Cyanosis, Jaundice, Mottled, Pallor Lymphatic: No Adenopathy Course - Vital Signs Last Recorded V/S: Last Vital Signs Temp 98.2 F 01/10/21 07:51 Pulse 75 01/10/21 07:51 Resp 18 01/10/21 07:51 BP 112/57 L 01/10/21 07:51 Pulse Ox 100 01/10/21 07:51 - Orders/Labs/Meds Orders: Active Orders 24 hr Category Date Time Status Abdomen 2V AP Flat Upright [CR] Urgent Exams 01/10/21 08:59 Taken UA W/MICROSCOPIC [URIN] Stat Lab 01/10/21 10:16 Results Labs: Laboratory Tests 01/10/21 01/10/21 01/10/21 Range/Units 08:07 08:07 10:16 WBC 4.4 L (5.0-10.0) 10^3/uL RBC 4.60 (4.6-6.2) 10^6/uL Hgb 13.2 L (14.0-18.0) g/dL Hct 37.1 L (40.0-54.0) % MCV 80.7 (80-100) fL MCH 28.7 (27.0-34.0) pg MCHC 35.6 H (33.0-35.0) g/dL Plt Count 232 D (150-450) 10^3/uL Neut % (Auto) 67.3 (42.2-75.2) % Lymph % (Auto) 18.0 L (20.5-50.1) % [place] % (Auto) 14.5 H (2-8) % Eos % (Auto) 0.0 L (1.0-3.0) % Baso % (Auto) 0.2 (0.0-1.0) % Sodium 132 L (136-145) mmol/L Potassium 3.9 (3.5-5.1) mmol/L Chloride 93 L (98-107) mmol/L Carbon Dioxide 26 (21-32) mmol/L Anion Gap 16.9 H (7-13) mEq/L BUN 19 H (7-18) mg/dL Creatinine 1.48 H (0.70-1.30) mg/dL Est Cr Clr Drug Dosing 62.98 mL/min Estimated GFR (MDRD) 49 BUN/Creatinine Ratio 12.8 (No establ ref range) Glucose 206 H (70-99) mg/dL Calcium 8.7 (8.5-10.1) mg/dL Magnesium 1.6 L (1.8-2.4) mg/dL Total Bilirubin 0.6 (0.2-1.0) mg/dL AST 35 (15-37) U/L ALT 42 (16-63) U/L Alkaline Phosphatase 89 (46-116) U/L C-Reactive Protein 5.7 H (0.0-0.9) mg/dL Total Protein 7.1 (6.4-8.2) g/dL Albumin 3.1 L (3.4-5.0) g/dL Globulin 4.0 Albumin/Globulin Ratio 0.78 Amylase 37 (25-115) U/L Lipase 126 (73-393) U/L Urine Color Yellow (YELLOW) Urine Appearance Clear (CLEAR) Urine pH 8.5 (5.0-9.0) Ur Specific [place] 1.020 (1.005-1.030) Urine Protein 30 H (NEGATIVE) Urine Glucose (UA) 100 H (NEGATIVE) Urine Ketones Trace H (NEGATIVE) Urine Occult Blood Negative (NEGATIVE) Urine Nitrite Negative (NEGATIVE) Urine Bilirubin Negative (NEGATIVE) Urine Urobilinogen 0.2 (0.2-1.0) mg/dL Ur Leukocyte Esterase Negative (NEGATIVE) Meds: Medications Discontinued Medications Generic Name Dose Route Start Last Admin Trade Name Freq PRN Reason Stop Dose Admin Al Hydroxide/Mg Hydroxide 30 ml 01/10/21 08:17 01/10/21 08:25 Gi Cocktail Oral Solution 30 Ml PO 01/10/21 08:18 30 ml ONETIME ONE Administration Sodium Chloride 1,000 mls @ 999 mls/hr 01/10/21 08:59 01/10/21 09:15 Normal Saline IV 01/10/21 09:59 999 mls/hr .BOLUS ONE Administration Magnesium Oxide 500 mg 01/10/21 09:04 01/10/21 09:16 Magnesium Oxide 250 Mg Tab PO 01/10/21 09:05 500 mg ONETIME ONE Administration Ondansetron HCl 4 mg 01/10/21 08:17 01/10/21 08:25 Ondansetron 4 Mg/2 Ml Sdv IVPUSH 01/10/21 08:18 4 mg ONETIME ONE Administration Polyethylene Glycol 17 gm 01/10/21 10:38 01/10/21 10:51 Polyethylene Glycol 3350 Powder 17 Gm Packet PO 01/10/21 10:39 17 gm ONETIME ONE Administration - Re-Assessments/Exams Free Text/Narrative Re-Assessment/Exam: 01/10/21 GI cocktail and Zofran 4mg IVP administered. Labs pending. Will obtain Xray abdomen flat/upright. Patient verbalized improvement in pain and nausea following medication administration. Findings of examination, lab work, and imaging reviewed with patient. Will treat constipation with MiraLAX. Patient instructed to continue on previously prescribed medications and to use PRNs for breakthrough pain. Discussed supportive cares for constipation and reflux. Patient instructed to follow up with PCP regarding visits. Red flag signs and symptoms which would warrant reevaluation reviewed. Patient verbalized understanding and agreement with the plan of care. Departure - Departure Time of Disposition: 10:38 Disposition: Home, Self-Care 01 Condition: Good Clinical Impression: Reflux esophagitis Qualifiers: Esophagitis bleeding: without hemorrhage Qualified Code(s): K21.00 - Gastro- esophageal reflux disease with esophagitis, without bleeding Constipation Qualifiers: Constipation type: slow transit constipation Qualified Code(s): K59.01 - Slow transit constipation - Discharge Information *PRESCRIPTION DRUG MONITORING PROGRAM REVIEWED*: Not Applicable *COPY OF PRESCRIPTION DRUG MONITORING REPORT IN PATIENT ANNIE: Not Applicable Instructions: Food Choices for Gastroesophageal Reflux Disease, Adult, Constipation, Adult Forms: ED Department Discharge Additional Instructions: 1.) You may take an additional dose of MiraLAX tomorrow, should you not experience results today 2.) Drink small, frequent sips of water and fluids to stay hydrated. 3.) Eat small, snack like meals which are easily digestible. Avoid greasy, high-fat, spicy foods. 4.) You may take Maalox, TUMs, Pepcid, should symptoms persist. 5.) Follow up with your primary care provider in 3-5 days, or return to the emergency department should symptoms persist or worsen despite medication. Sepsis Event Note (ED) - Focused Exam Vital Signs: Vital Signs Temp Pulse Resp BP Pulse Ox 01/10/21 07:51 98.2 F 75 18 112/57 L 100 - My Orders Last 24 Hours: My Active Orders 01/10/21 08:59 Abdomen 2V AP Flat Upright [CR] Urgent 01/10/21 10:16 UA W/MICROSCOPIC [URIN] Stat - Assessment/Plan Last 24 Hours: My Active Orders 01/10/21 08:59 Abdomen 2V AP Flat Upright [CR] Urgent 01/10/21 10:16 UA W/MICROSCOPIC [URIN] Stat
[2021-01-10] MEDS ORDERED: GI Cocktail Oral Solution 30 ML PO ONE (08:17)
[2021-01-10] MEDS ORDERED: Ondansetron 4 MG/2 ML SDV IVPUSH ONE (08:17)
[2021-01-10 08:41] LABS: ANION GAP 16.9 mEq/L (7-13)
[2021-01-10] MEDS ORDERED: Sodium Chloride 0.9% 1,000 ML IV ONE (08:59)
[2021-01-10] MEDS ORDERED: Polyethylene Glycol 3350 Powder 17 GM Packet PO ONE (10:38)
--- NOTE | 2021-01-10 11:18 | CR ---
PROCEDURE INFORMATION: Exam: XR Abdomen Exam date and time: 01/10/2021 9:33 AM Age: 55 years old Clinical indication: Abdominal pain; Generalized; Additional info: Upper abdominal pain; No bm x5 days TECHNIQUE: Imaging protocol: XR of the abdomen. Views: 2 Views. Upright and supine views. COMPARISON: No relevant prior studies available. FINDINGS: Gastrointestinal tract: The bowel gas pattern is nonobstructive and nonspecific. A large amount of stool is noted throughout the colon. Intraperitoneal space: Normal. No free air. Bones/joints: The lumbar spine demonstrates mild degenerative changes at multiple levels. IMPRESSION: 1. The bowel gas pattern is nonobstructive and nonspecific. 2. A large amount of stool is noted throughout the colon.
== END 2021-01-10 10:55 | disposition home or self-care (01) ==
LOC: DL.ED 07:42
DX: K21.00 Gastro-esophageal reflux disease with esophagitis, without bleeding (principal); K59.01 Slow transit constipation; E78.00 Pure hypercholesterolemia, unspecified; I10 Essential (primary) hypertension; I25.2 Old myocardial infarction; K21.9 Gastro-esophageal reflux disease without esophagitis; E11.42 Type 2 diabetes mellitus with diabetic polyneuropathy; E66.9 Obesity, unspecified; Z68.24 Body mass index [BMI] 24.0-24.9, adult; Z88.5 Allergy status to narcotic agent; Z88.8 Allergy status to other drugs, medicaments and biological substances; Z79.4 Long term (current) use of insulin; Z79.899 Other long term (current) drug therapy
CPT/HCPCS: 36415; 74019; 80053; 81001; 82150; 83690; 83735; 85025; 86140; 96374; 99284-25; A9270-GY; J2405; J7030

== ENCOUNTER 2021-01-14 15:45 | Emergency (ER) | payer OTHER ==
[2021-01-14] MEDS ORDERED: Benzonatate 100 MG Cap PO ONE (15:46)
[2021-01-14] MEDS ORDERED: Ondansetron 4 MG Tab.DIS PO ONE (15:46)
[2021-01-14] MEDS ORDERED: Ondansetron 4 MG/2 ML SDV IVPUSH ONE (15:57)
[2021-01-14] MEDS ORDERED: HYDROmorphone 1 MG/ML Syringe IVPUSH ONE (15:57)
--- NOTE | 2021-01-14 16:32 | EDM.PDOC ---
ED HPI GENERAL MEDICAL PROBLEM - General Chief Complaint: Abdominal Pain Stated Complaint: ABULANCE Time Seen by Provider: 01/14/21 16:00 Source of Information: Reports: Patient, EMS, Provider (Dr. Stover), RN, RN Notes Reviewed History Limitations: Reports: No Limitations - History of Present Illness INITIAL COMMENTS - FREE TEXT/NARRATIVE: Mitch is a 55 y/o male who presents to the ED via [facility] at the request of his [facility] provider, Dr. Stover, for persistent nausea, vomiting, and abdominal pain. The patient was evaluated in this facility 4 days prior and was diagnosed with constipation and ongoing reflux; the patient was given MiraLAX. He reports positive results from the MiraLAX with improvement in pain two days ago, however last night began to experience twisting and cramping diffuse to this abdomen. He notes the stool he passed with the MiraLAX was dark and tar-like. Additionally, he notes his nausea has increased with multiple bouts of bilious emesis. He notes rigors with pain. He denies fever, chest pain, palpitations, shortness of breath, dyspepsia, hematemesis, dysuria, hematuria, flank pain, or hematochezia. He has taken no additional medications for his symptoms. Per Dr. Stover's report the patient has lost 25lbs, unintentionally. Upper Abdomen Pain Score (Numeric/FACES): 8 - Related Data Allergies Allergy/AdvReac Type Severity Reaction Status Date / Time tamsulosin [From Flomax] Allergy Swelling Verified 01/14/21 16:36 acetaminophen [From Percocet] AdvReac Severe Vomiting Verified 01/14/21 16:36 oxycodone [From Percocet] AdvReac Severe Vomiting Verified 01/14/21 16:36 Home Meds: Home Meds Lisinopril 40 mg PO BEDTIME 09/01/16 [History] Metoprolol Succinate 25 mg PO BEDTIME 09/01/16 [History] amLODIPine [Norvasc] 10 mg PO BEDTIME 09/01/16 [History] Chlorthalidone 25 mg PO DAILY 09/20/16 [History] Insulin Aspart [Novolog Flexpen] 4 - 22 units SQ WITHMEALSANDBED 09/20/16 [History] Insulin Detemir [Levemir] 20 units SQ BID 05/06/17 [History] Omeprazole 20 mg PO DAILY 09/20/16 [History] Meclizine HCl 25 mg PO BID PRN #20 tab.chew 06/05/17 [Rx] Past Medical History HEENT History: Reports: Impaired Vision, Macular Degeneration Cardiovascular History: Reports: High Cholesterol, Hypertension, [place] Respiratory History: Reports: None Gastrointestinal History: Reports: GERD, Hemorrhoids Genitourinary History: Reports: BPH, Renal Calculus, Renal Disease Other Genitourinary History: HEMATURIA Musculoskeletal History: Reports: RA Other Musculoskeletal History: DIABETIC PERIPHERAL NEUROPATHY Neurological History: Reports: Concussion, Headaches, Chronic, Migraines Psychiatric History: Reports: None Endocrine/Metabolic History: Reports: Diabetes, Type II, IDDM, Obesity/BMI 30+ Hematologic History: Reports: Anemia Immunologic History: Reports: None Oncologic (Cancer) History: Reports: None Dermatologic History: Reports: None - Infectious Disease History Infectious Disease History: Reports: Chicken Pox Other Infectious Disease History: MOTHER EXPERIENCED MUMPS AND MEALSES DURING HIS - Past Surgical History Head Surgeries/Procedures: Reports: None HEENT Surgical History: Reports: Tonsillectomy Cardiovascular Surgical History: Reports: None Respiratory Surgical History: Reports: None GI Surgical History: Reports: Appendectomy Endocrine Surgical History: Reports: None Neurological Surgical History: Reports: None Musculoskeletal Surgical History: Reports: None Oncologic Surgical History: Reports: None Dermatological Surgical History: Reports: None Social & Family History - Family History Family Medical History: No Pertinent Family History Cardiac: Reports: Angina, CAD, Heart Failure, High Cholesterol, Hypertension, [place], Prior Cardiac Arrest - Tobacco Use Tobacco Use Status *Q: Never Tobacco User Second Hand Smoke Exposure: No - Caffeine Use Caffeine Use: Reports: None Other Caffeine Use: 'I LOVE COFFEE' 2-3 CUPS 16 OZ CUPS DAILY - Recreational Drug Use Recreational Drug Use: No - Living Situation & Occupation Occupation: Employed ED ROS GENERAL - Review of Systems Review Of Systems: Comprehensive ROS is negative, except as noted in HPI. ED EXAM, GI/ABD - Physical Exam Exam: See Below Exam Limited By: No Limitations General Appearance: Alert, Moderate Distress (Diffuse abdominal pain) Eyes: Bilateral: Normal Appearance, EOMI Ears: Normal External Exam, Normal Canal, Hearing Grossly Normal, Normal TMs Nose: Normal Inspection, Normal Mucosa, No Blood Throat/Mouth: Normal Voice, No Airway Compromise. No: Normal Oropharynx (Dry mucous membranes) Head: Atraumatic, Normocephalic Neck: Normal Inspection, Supple, Non-Tender, Full Range of Motion. No: Lymphadenopathy (L), Lymphadenopathy (R) Respiratory/Chest: No Respiratory Distress, Lungs Clear, Normal Breath Sounds, No Accessory Muscle Use, Chest Non-Tender Cardiovascular: Normal Peripheral Pulses, Regular Rate, Rhythm, No Edema, No Gallop, No JVD, No Murmur, No Rub GI/Abdominal Exam: Soft, No Distention, No Abnormal Bruit, No Mass, Pelvis Stable, Guarding, Tender (Diffuse to palpation, LLQ greatest area of pain). No: Rigid, Rebound, Hernia (Male) Exam: Deferred Rectal (Males) Exam: Deferred Back Exam: Normal Inspection, Full Range of Motion. No: CVA Tenderness (L), CVA Tenderness (R), Muscle Spasm Extremities: Normal Inspection, Normal Range of Motion, Non-Tender, No Pedal Edema, Normal Capillary Refill Neurological: Alert, Oriented, CN II-XII Intact, Normal Cognition, Normal Gait, No Motor/Sensory Deficits Psychiatric: Normal Affect, Normal Mood Skin Exam: Warm, Dry, Intact, Normal Color, No Rash. No: Cyanosis, Jaundice, Mottled, Pallor Lymphatic: No Adenopathy Course - Vital Signs Last Recorded V/S: Last Vital Signs Temp 97.6 F 01/14/21 15:45 Pulse 77 01/14/21 15:45 Resp 20 01/14/21 15:45 BP 112/70 01/14/21 15:45 Pulse Ox 99 01/14/21 15:45 - Orders/Labs/Meds Labs: Laboratory Tests 01/14/21 01/14/21 01/14/21 Range/Units 16:10 16:10 16:10 WBC 8.7 (5.0-10.0) 10^3/uL RBC 4.75 (4.6-6.2) 10^6/uL Hgb 13.6 L (14.0-18.0) g/dL Hct 37.2 L (40.0-54.0) % MCV 78.3 L (80-100) fL MCH 28.6 (27.0-34.0) pg MCHC 36.6 H (33.0-35.0) g/dL Plt Count 400 D (150-450) 10^3/uL Neut % (Auto) 74.8 (42.2-75.2) % Lymph % (Auto) 11.4 L (20.5-50.1) % Branch % (Auto) 13.5 H (2-8) % Eos % (Auto) 0.2 L (1.0-3.0) % Baso % (Auto) 0.1 (0.0-1.0) % Sodium 126 L (136-145) mmol/L Potassium 4.5 (3.5-5.1) mmol/L Chloride 89 L (98-107) mmol/L Carbon Dioxide 24 (21-32) mmol/L Anion Gap 17.5 H (7-13) mEq/L BUN 21 H (7-18) mg/dL Creatinine 1.56 H (0.70-1.30) mg/dL Est Cr Clr Drug Dosing 59.75 mL/min Estimated GFR (MDRD) 46 BUN/Creatinine Ratio 13.5 (No establ ref range) Glucose 206 H (70-99) mg/dL Lactic Acid 1.3 (0.4-2.0) mmol/L Calcium 8.7 (8.5-10.1) mg/dL Magnesium 2.1 (1.8-2.4) mg/dL Total Bilirubin 0.8 (0.2-1.0) mg/dL AST 38 H (15-37) U/L ALT 48 (16-63) U/L Alkaline Phosphatase 109 (46-116) U/L Troponin I High Sens 5 (<=76) pg/mL C-Reactive Protein 9.2 H (0.0-0.9) mg/dL Total Protein 7.5 (6.4-8.2) g/dL Albumin 3.0 L (3.4-5.0) g/dL Globulin 4.5 Albumin/Globulin Ratio 0.67 Amylase 53 (25-115) U/L Lipase 194 (73-393) U/L Urine Color (YELLOW) Urine Appearance (CLEAR) Urine pH (5.0-9.0) Ur Specific [place] (1.005-1.030) Urine Protein (NEGATIVE) Urine Glucose (UA) (NEGATIVE) Urine Ketones (NEGATIVE) Urine Occult Blood (NEGATIVE) Urine Nitrite (NEGATIVE) Urine Bilirubin (NEGATIVE) Urine Urobilinogen (0.2-1.0) mg/dL Ur Leukocyte Esterase (NEGATIVE) Urine RBC (0-5) /HPF Urine WBC (0-5/HPF) /HPF Ur Epithelial Cells (NOT SEEN) /HPF Urine Bacteria (0-FEW/HPF) /HPF Urine Opiates Screen (NEGATIVE) Ur Oxycodone Screen (NEGATIVE) Urine Methadone Screen (NEGATIVE) Ur Barbiturates Screen (NEGATIVE) U Tricyclic Antidepress (NEGATIVE) Ur Phencyclidine Scrn (NEGATIVE) Ur Amphetamine Screen (NEGATIVE) U Methamphetamines Scrn (NEGATIVE) Urine MDMA Screen (NEGATIVE) U Benzodiazepines Scrn (NEGATIVE) Urine Cocaine Screen (NEGATIVE) U Marijuana (THC) Screen (NEGATIVE) Ethyl Alcohol < 3 (0) mg/dL SARS-CoV-2 RNA (RAHUL) (NEGATIVE) 01/14/21 01/14/21 01/14/21 Range/Units 16:50 16:54 16:54 WBC (5.0-10.0) 10^3/uL RBC (4.6-6.2) 10^6/uL Hgb (14.0-18.0) g/dL Hct (40.0-54.0) % MCV (80-100) fL MCH (27.0-34.0) pg MCHC (33.0-35.0) g/dL Plt Count (150-450) 10^3/uL Neut % (Auto) (42.2-75.2) % Lymph % (Auto) (20.5-50.1) % Branch % (Auto) (2-8) % Eos % (Auto) (1.0-3.0) % Baso % (Auto) (0.0-1.0) % Sodium (136-145) mmol/L Potassium (3.5-5.1) mmol/L Chloride (98-107) mmol/L Carbon Dioxide (21-32) mmol/L Anion Gap (7-13) mEq/L BUN (7-18) mg/dL Creatinine (0.70-1.30) mg/dL Est Cr Clr Drug Dosing mL/min Estimated GFR (MDRD) BUN/Creatinine Ratio (No establ ref range) Glucose (70-99) mg/dL Lactic Acid (0.4-2.0) mmol/L Calcium (8.5-10.1) mg/dL Magnesium (1.8-2.4) mg/dL Total Bilirubin (0.2-1.0) mg/dL AST (15-37) U/L ALT (16-63) U/L Alkaline Phosphatase (46-116) U/L Troponin I High Sens (<=76) pg/mL C-Reactive Protein (0.0-0.9) mg/dL Total Protein (6.4-8.2) g/dL Albumin (3.4-5.0) g/dL Globulin Albumin/Globulin Ratio Amylase (25-115) U/L Lipase (73-393) U/L Urine Color Yellow (YELLOW) Urine Appearance Clear (CLEAR) Urine pH 7.0 (5.0-9.0) Ur Specific [place] 1.015 (1.005-1.030) Urine Protein 30 H (NEGATIVE) Urine Glucose (UA) Negative (NEGATIVE) Urine Ketones 15 H (NEGATIVE) Urine Occult Blood Negative (NEGATIVE) Urine Nitrite Negative (NEGATIVE) Urine Bilirubin Negative (NEGATIVE) Urine Urobilinogen 0.2 (0.2-1.0) mg/dL Ur Leukocyte Esterase Negative (NEGATIVE) Urine RBC 0-5 (0-5) /HPF Urine WBC 0-5 (0-5/HPF) /HPF Ur Epithelial Cells Rare (NOT SEEN) /HPF Urine Bacteria Not seen (0-FEW/HPF) /HPF Urine Opiates Screen Negative (NEGATIVE) Ur Oxycodone Screen Negative (NEGATIVE) Urine Methadone Screen Negative (NEGATIVE) Ur Barbiturates Screen Negative (NEGATIVE) U Tricyclic Antidepress Negative (NEGATIVE) Ur Phencyclidine Scrn Negative (NEGATIVE) Ur Amphetamine Screen Negative (NEGATIVE) U Methamphetamines Scrn Negative (NEGATIVE) Urine MDMA Screen Negative (NEGATIVE) U Benzodiazepines Scrn Negative (NEGATIVE) Urine Cocaine Screen Negative (NEGATIVE) U Marijuana (THC) Screen Positive H (NEGATIVE) Ethyl Alcohol (0) mg/dL SARS-CoV-2 RNA (RAHUL) Positive H (NEGATIVE) Meds: Medications Discontinued Medications Generic Name Dose Route Start Last Admin Trade Name Freq PRN Reason Stop Dose Admin Benzonatate Confirm 01/14/21 18:56 01/14/21 18:56 Benzonatate 100 Mg Cap Administered 01/14/21 18:57 Not Given Dose 300 mg .ROUTE .STK-MED ONE Benzonatate 100 mg 01/14/21 15:46 Benzonatate 100 Mg Cap PO 01/14/21 15:47 .STK-MED ONE Hydromorphone HCl 1 mg 01/14/21 15:57 01/14/21 16:19 Hydromorphone 1 Mg/Ml Syringe IVPUSH 01/14/21 15:58 1 mg ONETIME ONE Administration Sodium Chloride 1,000 mls @ 999 mls/hr 01/14/21 16:55 01/14/21 17:47 Normal Saline IV 01/14/21 17:55 999 mls/hr .BOLUS ONE Administration Iopamidol 100 ml 01/14/21 16:55 01/14/21 17:50 Iopamidol 612 Mg/Ml 100 Ml Bottle IVPUSH 01/14/21 16:56 75 ml ONETIME ONE Administration Ondansetron HCl 4 mg 01/14/21 15:57 01/14/21 16:21 Ondansetron 4 Mg/2 Ml Sdv IVPUSH 01/14/21 15:58 4 mg ONETIME ONE Administration Ondansetron HCl Confirm 01/14/21 18:56 01/14/21 18:56 Ondansetron 4 Mg Tab.Dis Administered 01/14/21 18:57 Not Given Dose 12 mg .ROUTE .STK-MED ONE Ondansetron HCl 4 mg 01/14/21 15:46 Ondansetron 4 Mg Tab.Dis PO 01/14/21 15:47 .STK-MED ONE - Radiology Interpretation Free Text/Narrative:: [facility] [place] [facility] Final Radiology Report Call: [phone] assistance Online chat: [email or web address] Name: MITCH OSEGUERA Age: 55Years M Date: 01/14/2021 SSN: -- : [id number] Study: CT ABDOMEN PELVIS W CONT Requesting Physician: Sara Nguyen Images: 337 Addl Studies: Provided Clinical History: Abdominal pain x2 weeks, worst in LLQ Contrast: With Contrast Medium: Isovue 300 Contrast Amount: 75 mL Contrast Method: Intravenous (IV) Page 1 of 2 PROCEDURE INFORMATION: Exam: CT Abdomen And Pelvis With Contrast Exam date and time: 01/14/2021 5:19 PM Age: 55 years old Clinical indication: Abdominal pain; Prior surgery; Surgery date: 6+ months; Surgery type: Appendectomy; Additional info: Abdominal pain x2 weeks, worst in llq TECHNIQUE: Imaging protocol: Computed tomography of the abdomen and pelvis with contrast. Radiation optimization: All CT scans at this facility use at least one of these dose optimization techniques: automated exposure control; mA and/or kV adjustment per patient size (includes targeted exams where dose is matched to clinical indication); or iterative reconstruction. Contrast material: ISOVUE 300; Contrast volume: 75 ml; Contrast route: INTRAVENOUS (IV); COMPARISON: CR Abdomen 2V AP Flat Upright 01/10/2021 9:33 AM FINDINGS: Lungs: Scattered ground-glass and crazy paving airspace opacifications seen at the lung bases. Liver: There is enlargement of the liver, measuring 18 cm. There is a diffuse decrease in hepatic parenchymal density, consistent with fatty infiltration. 5 mm hypodense lesion in the left hepatic lobe on image 10 series 2 is too small to characterize but most probably benign representing a small cyst or hemangioma. No follow-up is recommended. The liver is otherwise unremarkable. Gallbladder and bile ducts: Normal. No calcified stones. No ductal dilation. Pancreas: Normal. No ductal dilation. Spleen: Normal. No splenomegaly. Adrenal glands: Normal. No mass. Kidneys and ureters: Normal. No hydronephrosis. Stomach and bowel: Unremarkable. No obstruction. No mucosal thickening. Appendix: No evidence of appendicitis. Intraperitoneal space: Unremarkable. No free air. No significant fluid collection. Vasculature: The vasculature demonstrates diffuse moderate atherosclerotic calcification. Lymph nodes: Unremarkable. No enlarged lymph nodes. Urinary bladder: The bladder is decompressed. 3 mm stone layering in the dependent portions of the urinary bladder, medial to the left UVJ. Reproductive: The prostate demonstrates marked nonspecific enlargement. The seminal vesicles are normal. The prostate demonstrates nonspecific parenchymal calcifications. Bones/joints: No acute skeletal pathology. Mild multilevel degenerative changes of the spine, as manifested by multilevel anterior osteophytes and multilevel decrease in intervertebral disc space. Soft tissues: Unremarkable. IMPRESSION: 1. Scattered ground-glass and crazy paving airspace opacifications in the bilateral lung bases. This is most concerning for atypical viral pneumonia, as can be seen with COVID-19 pneumonia in the appropriate clinical setting. 2. 3 mm stone layering in the dependent portions of the urinary bladder. Please note that there is no sequela of obstructive uropathy at this time. 3. Incidental findings as detailed above. Thank you for allowing us to participate in the care of your patient. Dictated and Authenticated by: Jamarcus Mccracken MD 01/14/2021 6:14 PM Central Time ([place] & [place]) - Re-Assessments/Exams Free Text/Narrative Re-Assessment/Exam: 01/14/21 Dilaudid 1mg IVP administered. COVID sent. Will obtain CT abdomen/pelvis given ongoing pain. NS 1L bolus administered. Patient verbalized improvement in pain following medication administration. COVID + Findings of examination, lab work, and imaging reviewed with patient. Will treat cough with Tessalon and nausea with Zofran. Discussed supportive cares for COVID pneumonia. State Health Department guidelines regarding quarantine reviewed. Red flag signs and symptoms which would warrant reevaluation reviewed. Patient verbalized understanding and agreement with the plan of care. Departure - Departure Time of Disposition: 18:46 Disposition: Home, Self-Care 01 Condition: Fair Clinical Impression: Hepatomegaly, Pneumonia due to COVID-19 virus, COVID-19 Nausea and vomiting Qualifiers: Vomiting type: bilious vomiting Qualified Code(s): R11.14 - Bilious vomiting Abdominal pain Qualifiers: Abdominal location: generalized Qualified Code(s): R10.84 - Generalized abdominal pain - Discharge Information *PRESCRIPTION DRUG MONITORING PROGRAM REVIEWED*: Not Applicable *COPY OF PRESCRIPTION DRUG MONITORING REPORT IN PATIENT ANNIE: Not Applicable Instructions: COVID-19 Frequently Asked Questions, COVID-19: How to Protect Yourself and Others - CDC, COVID-19: What to Do if You Are Sick - [facility] [place]NOTE 2] (05/17/2020) Forms: ED Department Discharge Additional Instructions: Rx: Tessalon Perles Rx: Zofran ODT 1.) Drink small, frequent sips of fluids to prevent dehydration. 2.) Eat small, frequent meals to avoid nausea. 3.) Follow State Health Department regarding quarantine guidelines. 4.) Continue in quarantine until you are 24 hours symptom free.
[2021-01-14 16:34] VITALS: BP 112/70; PULSE 77
[2021-01-14 16:47] LABS: ANION GAP 17.5 mEq/L (7-13); CHLORIDE,CL 89 mmol/L (98-107); SODIUM,NA 126 mmol/L (136-145)
[2021-01-14] MEDS ORDERED: Iopamidol 612 MG/ML 100 ML Bottle IVPUSH ONE (16:55)
[2021-01-14] MEDS ORDERED: Sodium Chloride 0.9% 1,000 ML IV ONE (16:55)
[2021-01-14 17:55] LABS: AMPHETAMINES,URINE NEGATIVE (NEGATIVE); BARBITURATES,URINE NEGATIVE (NEGATIVE); BENZODIAZEPINE,URINE NEGATIVE (NEGATIVE); MDMA (ECSTASY), URINE NEGATIVE (NEGATIVE); METHADONE,URINE NEGATIVE (NEGATIVE); METHAMPHETAMINES,URINE NEGATIVE (NEGATIVE); OPIATES,URINE NEGATIVE (NEGATIVE); OXYCODONE,URINE NEGATIVE (NEGATIVE); PHENCYCLIDINE,URINE NEGATIVE (NEGATIVE); TCA,URINE NEGATIVE (NEGATIVE)
--- NOTE | 2021-01-14 18:15 | CT ---
PROCEDURE INFORMATION: Exam: CT Abdomen And Pelvis With Contrast Exam date and time: 01/14/2021 5:19 PM Age: 55 years old Clinical indication: Abdominal pain; Prior surgery; Surgery date: 6+ months; Surgery type: Appendectomy; Additional info: Abdominal pain x2 weeks, worst in llq TECHNIQUE: Imaging protocol: Computed tomography of the abdomen and pelvis with contrast. Radiation optimization: All CT scans at this facility use at least one of these dose optimization techniques: automated exposure control; mA and/or kV adjustment per patient size (includes targeted exams where dose is matched to clinical indication); or iterative reconstruction. Contrast material: ISOVUE 300; Contrast volume: 75 ml; Contrast route: INTRAVENOUS (IV); COMPARISON: CR Abdomen 2V AP Flat Upright 01/10/2021 9:33 AM FINDINGS: Lungs: Scattered ground-glass and crazy paving airspace opacifications seen at the lung bases. Liver: There is enlargement of the liver, measuring 18 cm. There is a diffuse decrease in hepatic parenchymal density, consistent with fatty infiltration. 5 mm hypodense lesion in the left hepatic lobe on image 10 series 2 is too small to characterize but most probably benign representing a small cyst or hemangioma. No follow-up is recommended. The liver is otherwise unremarkable. Gallbladder and bile ducts: Normal. No calcified stones. No ductal dilation. Pancreas: Normal. No ductal dilation. Spleen: Normal. No splenomegaly. Adrenal glands: Normal. No mass. Kidneys and ureters: Normal. No hydronephrosis. Stomach and bowel: Unremarkable. No obstruction. No mucosal thickening. Appendix: No evidence of appendicitis. Intraperitoneal space: Unremarkable. No free air. No significant fluid collection. Vasculature: The vasculature demonstrates diffuse moderate atherosclerotic calcification. Lymph nodes: Unremarkable. No enlarged lymph nodes. Urinary bladder: The bladder is decompressed. 3 mm stone layering in the dependent portions of the urinary bladder, medial to the left UVJ. Reproductive: The prostate demonstrates marked nonspecific enlargement. The seminal vesicles are normal. The prostate demonstrates nonspecific parenchymal calcifications. Bones/joints: No acute skeletal pathology. Mild multilevel degenerative changes of the spine, as manifested by multilevel anterior osteophytes and multilevel decrease in intervertebral disc space. Soft tissues: Unremarkable. IMPRESSION: 1. Scattered ground-glass and crazy paving airspace opacifications in the bilateral lung bases. This is most concerning for atypical viral pneumonia, as can be seen with COVID-19 pneumonia in the appropriate clinical setting. 2. 3 mm stone layering in the dependent portions of the urinary bladder. Please note that there is no sequela of obstructive uropathy at this time. 3. Incidental findings as detailed above.
[2021-01-14] MEDS ORDERED: Benzonatate 100 MG Cap ONE (18:56)
[2021-01-14] MEDS ORDERED: Ondansetron 4 MG Tab.DIS ONE (18:56)
== END 2021-01-14 19:04 | disposition home or self-care (01) ==
LOC: DL.ED 15:45
DX: U07.1 COVID-19 (principal); J12.82 Pneumonia due to coronavirus disease 2019; R16.0 Hepatomegaly, not elsewhere classified; R11.2 Nausea with vomiting, unspecified; E78.00 Pure hypercholesterolemia, unspecified; I10 Essential (primary) hypertension; I25.2 Old myocardial infarction; K21.9 Gastro-esophageal reflux disease without esophagitis; E11.9 Type 2 diabetes mellitus without complications; E66.9 Obesity, unspecified; Z79.899 Other long term (current) drug therapy; Z88.5 Allergy status to narcotic agent; Z88.8 Allergy status to other drugs, medicaments and biological substances; Z20.822 Contact with and (suspected) exposure to COVID-19; Z68.25 Body mass index [BMI] 25.0-25.9, adult
CPT/HCPCS: 36415; 74177; 80053; 80305-QW; 80307; 81001; 82150; 82272; 83605; 83690; 83735; 84484; 85025; 86140; 96374; 96375; 99284; 99284-25; A9270-GY; J1170; J2405; J7030; Q9967; U0002

== ENCOUNTER 2021-05-23 11:05 | Emergency (ER) | payer OTHER ==
--- NOTE | 2021-05-23 11:27 | EDM.PDOC ---
<Arya Coker Jon - Last Filed: 05/23/21 12:21> ED HPI GENERAL MEDICAL PROBLEM - General Stated Complaint: SEVERE STOMACH PAIN / VOMITING BLOOD Time Seen by Provider: 05/23/21 11:40 Abdomen Pain Score (Numeric/FACES): 4 - Related Data Allergies Allergy/AdvReac Type Severity Reaction Status Date / Time tamsulosin [From Flomax] Allergy Swelling Verified 01/14/21 16:36 acetaminophen [From Percocet] AdvReac Severe Vomiting Verified 01/14/21 16:36 oxycodone [From Percocet] AdvReac Severe Vomiting Verified 01/14/21 16:36 Home Meds: Home Meds Alogliptin Benzoate [Alogliptin] 12.5 mg PO DAILY 05/23/21 [History] Cetirizine HCl [All Day Allergy Relief] 10 mg PO DAILY 05/23/21 [History] Chlorthalidone 50 mg PO DAILY 05/23/21 [History] Fluticasone Propionate [Flovent] 1 puff IH BID 05/23/21 [History] Gabapentin [Neurontin] 300 mg PO TID 05/23/21 [History] Insulin Aspart [Insulin Aspart Penfill] 100 unit SQ TID 05/23/21 [History] Insulin Detemir [Levemir Flextouch] 30 units SQ BID 05/23/21 [History] Metoprolol Succinate [Toprol XL 50mg] 75 mg PO DAILY 05/23/21 [History] Multivitamin [Multi-Vitamin Daily] 1 tab PO DAILY 05/23/21 [History] Pantoprazole Sodium [Protonix] 40 mg PO DAILY 05/23/21 [History] Pioglitazone [Actos] 15 mg PO DAILY 05/23/21 [History] amLODIPine Besylate [Amlodipine Besylate] 2.5 mg PO DAILY 05/23/21 [History] atorvaSTATin Calcium [Atorvastatin Calcium] 20 mg PO DAILY 05/23/21 [History] lisinopriL [Lisinopril] 20 mg PO DAILY 05/23/21 [History] metFORMIN HCl [Metformin ER Osmotic] 1,000 mg PO BID 05/23/21 [History] Course - Radiology Interpretation Free Text/Narrative:: [facility] Final Radiology Report Call: [phone] assistance Online chat: [email or web address] Name: BETTY SANCHEZ Age: 21Years F Date: 05/23/2021 SSN: -- : 10/13/1999 Study: CR CHEST 1V FRONTAL Requesting Physician: Jerrell Arreaga Images: 1 Addl Studies: Provided Clinical History: cp Contrast: Contrast Medium: Contrast Amount: Contrast Method: CONFIDENTIALITY STATEMENT This report is intended only for use by the referring physician, and only in accordance with law. If you received this in error, call [phone]. Page 1 of 1 PROCEDURE INFORMATION: Exam: XR Chest Exam date and time: 05/23/2021 12:01 PM Age: 21 years old Clinical indication: Pain; Chest pressure; Additional info: Cp TECHNIQUE: Imaging protocol: XR of the chest. Views: 1 view. COMPARISON: No relevant prior studies available. FINDINGS: Lungs: Unremarkable. No consolidation. Pleural spaces: Unremarkable. No pleural effusion. No pneumothorax. Heart/Mediastinum: Unremarkable. No cardiomegaly. Bones/joints: Unremarkable. IMPRESSION: No acute findings. Thank you for allowing us to participate in the care of your patient. Dictated and Authenticated by: Elenita Petty MD 05/23/2021 12:14 PM Central Time ([place] & [place]) Departure - Departure Disposition: Home, Self-Care 01 Clinical Impression: Influenza A - Discharge Information Instructions: Influenza, Adult, [id number] Additional Instructions: RX: Zofran Drink plenty of fluids to maintain hydration. Do not take your Metformin until May 26 as it can increase your lactic acidosis. If any new symptoms or concerns develop contact your primary care facility or return to the ER. <Jerrell Arreaga - Last Filed: 05/23/21 13:57> ED HPI GENERAL MEDICAL PROBLEM - General Source of Information: Reports: Patient History Limitations: Reports: No Limitations - History of Present Illness INITIAL COMMENTS - FREE TEXT/NARRATIVE: 55 y/o M c/o vomiting blood an hour ago while at work. 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 Pt was concerned that he was vomiting blood. t saw Dr. Sheth a year ago and had a scope which showed some ulcers. He is supposed to be on pantoprazole but has not been taking it. Is a jak II diabetic takes metformin and insulin. Had COVID in Dec of last year. Denies fever, chills, neck pn, cp, db, abd pn, diarrhea, constipation, blood in stool, drugs, etoh. Past Medical History HEENT History: Reports: Impaired Vision, Macular Degeneration Cardiovascular History: Reports: High Cholesterol, Hypertension, [place] Respiratory History: Reports: None Gastrointestinal History: Reports: GERD, Hemorrhoids Genitourinary History: Reports: BPH, Renal Calculus, Renal Disease Other Genitourinary History: HEMATURIA Musculoskeletal History: Reports: RA Other Musculoskeletal History: DIABETIC PERIPHERAL NEUROPATHY Neurological History: Reports: Concussion, Headaches, Chronic, Migraines Psychiatric History: Reports: None Endocrine/Metabolic History: Reports: Diabetes, Type II, IDDM, Obesity/BMI 30+ Hematologic History: Reports: Anemia Immunologic History: Reports: None Oncologic (Cancer) History: Reports: None Dermatologic History: Reports: None - Infectious Disease History Infectious Disease History: Reports: Chicken Pox Other Infectious Disease History: MOTHER EXPERIENCED MUMPS AND MEALSES DURING HIS - Past Surgical History Head Surgeries/Procedures: Reports: None HEENT Surgical History: Reports: Tonsillectomy Cardiovascular Surgical History: Reports: None Respiratory Surgical History: Reports: None GI Surgical History: Reports: Appendectomy Endocrine Surgical History: Reports: None Neurological Surgical History: Reports: None Musculoskeletal Surgical History: Reports: None Oncologic Surgical History: Reports: None Dermatological Surgical History: Reports: None Social & Family History - Family History Family Medical History: No Pertinent Family History Cardiac: Reports: Angina, CAD, Heart Failure, High Cholesterol, Hypertension, [place], Prior Cardiac Arrest - Caffeine Use Caffeine Use: Reports: None Other Caffeine Use: 'I LOVE COFFEE' 2-3 CUPS 16 OZ CUPS DAILY - Living Situation & Occupation Occupation: Employed ED ROS GENERAL - Review of Systems Review Of Systems: Comprehensive ROS is negative, except as noted in HPI. ED EXAM, GI/ABD - Physical Exam Exam: See Below Exam Limited By: No Limitations General Appearance: Alert, No Apparent Distress Nose: Normal Inspection, Normal Mucosa, No Blood Throat/Mouth: Normal Inspection, Normal Lips, Normal Teeth, Normal Gums, Normal Oropharynx, Normal Voice, No Airway Compromise Head: Atraumatic, Normocephalic Neck: Normal Inspection, Supple, Non-Tender, Full Range of Motion Respiratory/Chest: No Respiratory Distress, Lungs Clear, Normal Breath Sounds, No Accessory Muscle Use, Chest Non-Tender Cardiovascular: Normal Peripheral Pulses, Regular Rate, Rhythm, No Edema, No Gallop, No JVD, No Murmur, No Rub GI/Abdominal Exam: Normal Bowel Sounds, Soft, Non-Tender, No Organomegaly, No Distention, No Abnormal Bruit, No Mass, Pelvis Stable Rectal (Males) Exam: Other (Pt refused rectal exam and hemocult test) Back Exam: Normal Inspection, Full Range of Motion, NT Extremities: Normal Inspection, Normal Range of Motion, Non-Tender, Normal Capillary Refill, No Pedal Edema Neurological: Alert, Oriented, CN II-XII Intact, Normal Cognition, Normal Gait, Normal Reflexes, No Motor/Sensory Deficits Psychiatric: Normal Affect, Normal Mood Skin Exam: Warm, Dry, Intact #1 Interpretation EKG Date: 05/23/21 Time: 11:16 Rhythm: Other (sinus) [place]: Normal P-Wave: Present QRS: Normal ST-T: Normal QT: Normal Course - Vital Signs Last Recorded V/S: Last Vital Signs Temp 96.2 F L 05/23/21 11:35 Pulse 68 05/23/21 11:35 Resp 20 05/23/21 11:35 BP 152/78 H 05/23/21 11:35 Pulse Ox 100 05/23/21 11:35 - Orders/Labs/Meds Orders: Active Orders 24 hr Category Date Time Status Peripheral IV Care [RC] . DIRECTED Care 05/23/21 11:32 Active REFLEX LACTIC ACID YES OR NO [CHEM] Routine Lab 05/23/21 12:16 Received Pantoprazole [ProTONIX IV] 40 mg Med 05/23/21 11:48 Active Sodium Chloride 0.9% [Normal Saline] 100 ml IV .CONTINUOS Sodium Chloride 0.9% [Saline Flush] Med 05/23/21 11:30 Active 10 ml FLUSH ASDIRECTED PRN Peripheral IV Insertion Adult [OM.PC] Routine Oth 05/23/21 11:30 Ordered Medication Orders Pantoprazole Sodium 40 mg/ (Sodium Chloride) 100 mls @ 20 mls/hr IV .CONTINUOS MIGUELINA Last Admin: 05/23/21 12:06 Dose: 20 mls/hr Documented by: SOFIA Sodium Chloride (Sodium Chloride 0.9% 10 Ml Syringe) 10 ml FLUSH ASDIRECTED PRN PRN Reason: Keep Vein Open Last Admin: 05/23/21 12:08 Dose: 10 ml Documented by: SOFIA Labs: Laboratory Tests 05/23/21 05/23/21 05/23/21 Range/Units 11:29 11:29 11:29 WBC 9.1 (5.0-10.0) 10^3/uL RBC 4.61 (4.6-6.2) 10^6/uL Hgb 12.7 L (14.0-18.0) g/dL Hct 37.5 L (40.0-54.0) % MCV 81.3 D (80-100) fL MCH 27.5 (27.0-34.0) pg MCHC 33.9 (33.0-35.0) g/dL Plt Count 350 (150-450) 10^3/uL Neut % (Auto) 67.7 (42.2-75.2) % Lymph % (Auto) 19.4 L (20.5-50.1) % Major % (Auto) 11.9 H (2-8) % Eos % (Auto) 0.7 L (1.0-3.0) % Baso % (Auto) 0.3 (0.0-1.0) % Sodium 137 D (136-145) mmol/L Potassium 4.0 (3.5-5.1) mmol/L Chloride 99 (98-107) mmol/L Carbon Dioxide 24 (21-32) mmol/L Anion Gap 18.0 H (7-13) mEq/L BUN 22 H (7-18) mg/dL Creatinine 1.52 H (0.70-1.30) mg/dL Est Cr Clr Drug Dosing 56.03 mL/min Estimated GFR (MDRD) 48 BUN/Creatinine Ratio 14.5 (No establ ref range) Glucose 223 H (70-99) mg/dL Lactic Acid 2.4 H* (0.4-2.0) mmol/L Calcium 9.8 (8.5-10.1) mg/dL Magnesium 1.5 L (1.8-2.4) mg/dL Total Bilirubin 0.5 (0.2-1.0) mg/dL AST 22 (15-37) U/L ALT 30 (16-63) U/L Alkaline Phosphatase 87 (46-116) U/L C-Reactive Protein < 0.2 (0.0-0.9) mg/dL Total Protein 7.8 (6.4-8.2) g/dL Albumin 3.8 (3.4-5.0) g/dL Globulin 4.0 Albumin/Globulin Ratio 0.9 Influenza Type A RNA (NEGATIVE) Influenza Type B RNA (NEGATIVE) SARS-CoV-2 RNA (RAHUL) (NEGATIVE) 05/23/21 Range/Units 11:45 WBC (5.0-10.0) 10^3/uL RBC (4.6-6.2) 10^6/uL Hgb (14.0-18.0) g/dL Hct (40.0-54.0) % MCV (80-100) fL MCH (27.0-34.0) pg MCHC (33.0-35.0) g/dL Plt Count (150-450) 10^3/uL Neut % (Auto) (42.2-75.2) % Lymph % (Auto) (20.5-50.1) % Major % (Auto) (2-8) % Eos % (Auto) (1.0-3.0) % Baso % (Auto) (0.0-1.0) % Sodium (136-145) mmol/L Potassium (3.5-5.1) mmol/L Chloride (98-107) mmol/L Carbon Dioxide (21-32) mmol/L Anion Gap (7-13) mEq/L BUN (7-18) mg/dL Creatinine (0.70-1.30) mg/dL Est Cr Clr Drug Dosing mL/min Estimated GFR (MDRD) BUN/Creatinine Ratio (No establ ref range) Glucose (70-99) mg/dL Lactic Acid (0.4-2.0) mmol/L Calcium (8.5-10.1) mg/dL Magnesium (1.8-2.4) mg/dL Total Bilirubin (0.2-1.0) mg/dL AST (15-37) U/L ALT (16-63) U/L Alkaline Phosphatase (46-116) U/L C-Reactive Protein (0.0-0.9) mg/dL Total Protein (6.4-8.2) g/dL Albumin (3.4-5.0) g/dL Globulin Albumin/Globulin Ratio Influenza Type A RNA Positive H (NEGATIVE) Influenza Type B RNA Negative (NEGATIVE) SARS-CoV-2 RNA (RAHUL) Negative (NEGATIVE) Meds: Medications Generic Name Dose Route Start Last Admin Trade Name Frearaceli PRN Reason Stop Dose Admin Pantoprazole Sodium 40 mg/ 100 mls @ 20 mls/hr 05/23/21 11:48 05/23/21 12:06 Sodium Chloride IV 20 mls/hr .CONTINUOS MIGUELINA Administration Sodium Chloride 10 ml 05/23/21 11:30 05/23/21 12:08 Sodium Chloride 0.9% 10 Ml Syringe FLUSH 10 ml ASDIRECTED PRN Administration Keep Vein Open Discontinued Medications Generic Name Dose Route Start Last Admin Trade Name Maximiliano PRN Reason Stop Dose Admin Sodium Chloride 1,000 mls @ 999 mls/hr 05/23/21 11:46 05/23/21 12:06 Normal Saline IV 05/23/21 12:46 999 mls/hr .BOLUS ONE Administration Pantoprazole Sodium 40 mg/ 100 mls @ 200 mls/hr 05/23/21 11:49 05/23/21 12:08 Sodium Chloride IV 05/23/21 12:18 200 mls/hr ONETIME ONE Administration Sodium Chloride 1,000 mls @ 999 mls/hr 05/23/21 12:51 05/23/21 13:33 Normal Saline IV 05/23/21 13:51 999 mls/hr .BOLUS ONE Administration Ondansetron HCl 4 mg 05/23/21 11:51 05/23/21 12:06 Ondansetron 4 Mg/2 Ml Sdv IVPUSH 05/23/21 11:52 4 mg ONETIME ONE Administration - Re-Assessments/Exams Free Text/Narrative Re-Assessment/Exam: 05/23/21 13:51 The pt has had no further episodes of vomiting. I have been unable to determine if the pt has in fact been vomiting blood. The pt is positive for influenza A. At this time the pt feels safe to go home. I have instructed him to return to the ER if he experiences any more bloody emesis. Departure - Departure Time of Disposition: 13:54 Condition: Fair - Discharge Information *PRESCRIPTION DRUG MONITORING PROGRAM REVIEWED*: Not Applicable *COPY OF PRESCRIPTION DRUG MONITORING REPORT IN PATIENT ANNIE: Not Applicable Sepsis Event Note (ED) - Focused Exam Vital Signs: Vital Signs Temp Pulse Resp BP Pulse Ox 05/23/21 11:35 96.2 F L 68 20 152/78 H 100 - My Orders Last 24 Hours: My Active Orders 05/23/21 11:30 Sodium Chloride 0.9% [Saline Flush] 10 ml FLUSH ASDIRECTED PRN Peripheral IV Insertion Adult [OM.PC] Routine 05/23/21 11:32 Peripheral IV Care [RC] . DIRECTED 05/23/21 11:48 Pantoprazole [ProTONIX IV] 40 mg Sodium Chloride 0.9% [Normal Saline] 100 ml IV .CONTINUOS 05/23/21 12:16 REFLEX LACTIC ACID YES OR NO [CHEM] Routine - Assessment/Plan Last 24 Hours: My Active Orders 05/23/21 11:30 Sodium Chloride 0.9% [Saline Flush] 10 ml FLUSH ASDIRECTED PRN Peripheral IV Insertion Adult [OM.PC] Routine 05/23/21 11:32 Peripheral IV Care [RC] . DIRECTED 05/23/21 11:48 Pantoprazole [ProTONIX IV] 40 mg Sodium Chloride 0.9% [Normal Saline] 100 ml IV .CONTINUOS 05/23/21 12:16 REFLEX LACTIC ACID YES OR NO [CHEM] Routine
[2021-05-23] MEDS ORDERED: Sodium Chloride 0.9% 10 ML Syringe FLUSH PRN (11:30)
[2021-05-23 11:38] VITALS: BP 152/78; PULSE 68
[2021-05-23] MEDS ORDERED: Sodium Chloride 0.9% 1,000 ML IV ONE ×2 (11:46→12:51)
[2021-05-23] MEDS ORDERED: Pantoprazole 40 MG in Sodium Chloride 0.9% 100 ML IV SCH (11:48)
[2021-05-23] MEDS ORDERED: Pantoprazole 40 MG in Sodium Chloride 0.9% 100 ML IV ONE (11:49)
[2021-05-23] MEDS ORDERED: Ondansetron 4 MG/2 ML SDV IVPUSH ONE (11:51)
[2021-05-23 12:06] LABS: CHLORIDE,CL 99 mmol/L (98-107); SODIUM,NA 137 mmol/L (136-145)
[2021-05-23 12:29] LABS: CORONAVIRUS COVID-19 NAA NEGATIVE (NEGATIVE)
== END 2021-05-23 14:09 | disposition home or self-care (01) ==
LOC: DL.ED 11:05
DX: J10.1 Influenza due to other identified influenza virus with other respiratory manifestations (principal); E78.00 Pure hypercholesterolemia, unspecified; I10 Essential (primary) hypertension; I25.2 Old myocardial infarction; K21.9 Gastro-esophageal reflux disease without esophagitis; N40.0 Benign prostatic hyperplasia without lower urinary tract symptoms; E11.9 Type 2 diabetes mellitus without complications; E66.9 Obesity, unspecified; Z68.28 Body mass index [BMI] 28.0-28.9, adult; Z88.5 Allergy status to narcotic agent; Z88.8 Allergy status to other drugs, medicaments and biological substances; Z79.4 Long term (current) use of insulin; Z79.899 Other long term (current) drug therapy; Z20.822 Contact with and (suspected) exposure to COVID-19
CPT/HCPCS: 0240U; 36415; 80053; 83605; 83735; 85025; 86140; 93005; 96365; 96366; 96375; 99283; C9113; J2405; J7030

== ENCOUNTER 2021-09-02 11:40 | Emergency (ER) | payer OTHER ==
[2021-09-02 11:58] VITALS: BP 127/72; PULSE 69
[2021-09-02 12:59] LABS: ANION GAP 13.3 mEq/L (7-13)
[2021-09-02] MEDS ORDERED: Ketorolac 30 MG/ML SDV IVPUSH ONE (13:28)
== END 2021-09-02 14:24 | disposition home or self-care (01) ==
LOC: DL.ED 11:40
DX: S06.0X1A Concussion with loss of consciousness of 30 minutes or less, initial encounter (principal); E78.00 Pure hypercholesterolemia, unspecified; I10 Essential (primary) hypertension; I25.2 Old myocardial infarction; K21.9 Gastro-esophageal reflux disease without esophagitis; E11.42 Type 2 diabetes mellitus with diabetic polyneuropathy; E66.9 Obesity, unspecified; Z68.27 Body mass index [BMI] 27.0-27.9, adult; Z79.4 Long term (current) use of insulin; Z79.899 Other long term (current) drug therapy; Z88.5 Allergy status to narcotic agent; Z88.8 Allergy status to other drugs, medicaments and biological substances; W18.30XA Fall on same level, unspecified, initial encounter
CPT/HCPCS: 36415; 70450; 72125; 80053; 85025; 96374; 99284; J1885